=== PATIENT | female | born 1985 | race African-American/Black ===

== ENCOUNTER 2017-04-05 11:37 | Emergency (ER) | payer OTHER ==
[~2017-04-05] VITALS: Ht 162.6 cm; Wt 99.8 kg
[~2017-04-05 11:37] MED LIST: PANT40TA5 PO
[2017-04-05 12:05] VITALS: BP 147/75
[2017-04-05 12:29] LABS: BILIRUBIN,URINE NEGATIVE (NEG); GLUCOSE,URINE NEGATIVE (NEG); NITRITE,URINE NEGATIVE (NEG); PROTEIN,URINE NEGATIVE (NEG-TRACE); UROBILINOGEN,URINE 0.2 mg/dL (0.2 mg/dL)
[2017-04-05] MEDS ORDERED: AZITHROMYCIN 250 MG TABLET. PO ONE ×2 (12:45→14:15)
[2017-04-05] MEDS ORDERED: cefTRIAXone IM 250 MG VIAL IM ONE ×2 (12:45→14:15)
[2017-04-05 12:51] LABS: BACTERIA,URINE FEW /HPF (0-FEW); RBC,URINE 0 /HPF (0-2); SQUAMOUS EPITHELIAL CELL,UR MANY /LPF
--- NOTE | 2017-04-05 13:11 | PHYS DOC ---
Past Medical History Past Medical History: No Pertinent History Additional Past Medical Histor: obesity Past Surgical History: Additional Past Surgical Histo: X4 Alcohol Use: None Drug Use: None Adult General Chief Complaint Chief Complaint: ABDOMINAL PAIN HPI HPI 31-year-old female presenting to the emergency department today with abdominal pain. She reports cramping for about a week. She reports unprotected sex recently about 2 weeks ago. She has mild change in her vaginal fluid is darker but she denies having foul-smelling. She is unsure whether she was exposed to an STD. She currently is bottlefeeding 4-month-old. The pain is mild intermittent nonradiating without alleviating factors. She describes it as a cramping sensation. Review of systems is negative for chest pain shortness of breath fevers chills nausea or vomiting. All other review of systems is negative unless otherwise noted in history of present illness. ED course: 31-year-old female presenting to the emergency department today after having cramping in the pelvis along with a discharge change in her vaginal discharge. Vital signs afebrile normal heart rate. The patient was tested for gonorrhea and chlamydia and attempted to administer Rocephin and azithromycin for presumed infection. The patient declined this treatment and stated she would follow-up with the lab tests. Wet prep obtained as well which was suggestive of bacterial vaginosis for which the patient was discharged home with Flagyl. Urinalysis and test obtained. The patient was then discharged home in stable condition to follow up with their primary care physician over the next 2-3 days. They were to return if their symptoms worsened or if they were concerned for any reason. [id number] discharge instructions and return precautions were given. Patient's questions were answered to their satisfaction. Patient is comfortable plan. Review of Systems Review of Systems SEE ABOVE. Current Medications Current Medications Current Medications Medications (Trade) Dose Ordered Sig/Peter Start Time Stop Time Status Last Admin Dose Admin Azithromycin (Zithromax) 1,000 mg 1X ONCE 04/05/17 12:45 04/05/17 12:48 DC Ceftriaxone Sodium (Rocephin Im) 250 mg 1X ONCE 04/05/17 12:45 04/05/17 12:48 DC Allergies Allergies Allergies Coded Allergies Type Severity Reaction Last Updated Verified No Known Drug Allergies 10/08/13 No Physical Exam Physical Exam SEE ABOVE Constitutional: Well developed, well nourished, no acute distress, non-toxic appearance. [] HENT: Normocephalic, atraumatic, bilateral external ears normal, oropharynx moist, no oral exudates, nose normal. [] Eyes: PERRLA, EOMI, conjunctiva normal, no discharge. [] Neck: Normal range of motion, no tenderness, supple, no stridor. [] Cardiovascular:Heart rate regular rhythm, no murmur [] Lungs & Thorax: Bilateral breath sounds clear to auscultation [] Abdomen: Soft nontender abdomen without rebound tenderness or guarding present. Negative McBurneys point. Negative Bowman sign. No ecchymosis present. Skin: Warm, dry, no erythema, no rash. [] Back: No tenderness, no CVA tenderness. [] Extremities: No tenderness, no cyanosis, no clubbing, ROM intact, no edema. [] Neurologic: Alert and oriented X 3, normal motor function, normal sensory function, no focal deficits noted. [] Psychologic: Affect normal, judgement normal, mood normal. [] Current Patient Data Vital Signs Vital Signs Date Time Temp Pulse Resp B/P (MAP) Pulse Ox O2 Delivery O2 Flow Rate FiO2 04/05/17 12:05 98.4 81 18 147/75 (99) 97 Room Air 98.4 Lab Values Laboratory Tests Test 04/05/17 11:18 04/05/17 12:03 POC Urine HCG, Qualitative Hcg negative (Negative) Urine Collection Type Void Urine Color Yellow Urine Clarity Clear Urine pH 7.0 Urine Specific Gilmer 1.015 Urine Protein Negative mg/dL (NEG-TRACE) Urine Glucose (UA) Negative mg/dL (NEG) Urine Ketones (Stick) Negative mg/dL (NEG) Urine Blood Negative (NEG) Urine Nitrite Negative (NEG) Urine Bilirubin Negative (NEG) Urine Urobilinogen Dipstick 0.2 mg/dL (0.2 mg/dL) Urine Leukocyte Esterase Trace (NEG) Urine RBC 0 /HPF (0-2) Urine WBC 1-4 /HPF (0-4) Urine Squamous Epithelial Cells Many /LPF Urine Bacteria Few /HPF (0-FEW) Microbiology 04/05/17 Wet Prep - Final, Complete EKG EKG [] Radiology/Procedures Radiology/Procedures [] Course & Med Decision Making Course & Med Decision Making Pertinent Labs and Imaging studies reviewed. (See chart for details) [] Dragon Disclaimer Dragon Disclaimer This electronic medical record was generated, in whole or in part, using a voice recognition dictation system. Departure Departure Impression: Primary Impression: Abnormal vaginal fluids Disposition: HOME, SELF-CARE Condition: STABLE Referrals: NO PCP (PCP) BLAINE ENCARNACION MD Patient Instructions: Abdominal Pain (Nonspecific) Additional Instructions: Thank you for allowing us to participate in your care today. Followup with your primary care physician in 3 days if your symptoms do not improve. Call your Primary Doctor tomorrow and inform them of your visit today. If you do not have a primary care provider you can ask for a list of our primary care providers. Return to the emergency department you have any new or concerning findings. This should be evaluated by the primary care physician and any necessary consulting services for continued management within a few days after discharge. Return to emergency room if you have any new or concerning symptoms including but not limited to fever, chills, nausea, vomiting, intractable pain, any new rashes, chest pain, shortness of air, uncontrolled bleeding, difficulty breathing, and/or vision loss. Scripts Metronidazole (FLAGYL) 500 Mg Tablet 1 TAB PO BID, #14 TAB Prov: DIANELYS FOLEY MD 04/05/17 DIANELYS FOLEY MD Apr 05, 2017 13:11
[2017-04-05] MEDS ORDERED: METR500T PO (13:52)
== END 2017-04-05 14:28 | disposition home or self-care (01) ==
LOC: ER 11:37
DX: R87.89 Other abnormal findings in specimens from female genital organs (principal); R10.9 Unspecified abdominal pain; E66.9 Obesity, unspecified; Z68.37 Body mass index [BMI] 37.0-37.9, adult
CPT/HCPCS: 81001; 81025; 87086; 96372; 99284; J0696; Q0111; Q0144

== ENCOUNTER 2017-12-19 16:25 | Emergency (ER) | payer OTHER ==
[2017-12-19 17:24] LABS: URINE HCG POC HCG NEGATIVE (Negative)
[2017-12-19 18:16] LABS: BILIRUBIN,URINE NEGATIVE (NEG); CLARITY,URINE CLEAR; COLOR,URINE YELLOW; GLUCOSE,URINE NEGATIVE (NEG); NITRITE,URINE NEGATIVE (NEG); PROTEIN,URINE NEGATIVE (NEG-TRACE); UROBILINOGEN,URINE 0.2 mg/dL (0.2 mg/dL)
[2017-12-19 18:22] LABS: BACTERIA,URINE 0 /HPF (0-FEW); RBC,URINE OCC /HPF (0-2); SQUAMOUS EPITHELIAL CELL,UR OCC /LPF
[2017-12-19] MEDS: metroNIDAZOLE 500 MG TABLET PO (20:45)
[2017-12-19] MEDS: AZITHROMYCIN 250 MG TABLET. PO (20:46)
[2017-12-23 15:27] LABS: CHLAMYDIA PROBE Negative (Negative); GC PROBE Negative (Negative)
== END 2017-12-19 21:04 | disposition home or self-care (01) ==
LOC: ER 16:25
DX: A59.9 Trichomoniasis, unspecified (principal); N76.0 Acute vaginitis; B96.89 Other specified bacterial agents as the cause of diseases classified elsewhere
CPT/HCPCS: 36415; 81001; 81025; 85014; 85018; 87491; 87591; 96361; 96374; 96375; 96376; 99284-25; Q0111; Q0144

== ENCOUNTER 2018-01-04 11:44 | Emergency (ER) | payer OTHER ==
[2018-01-04 12:25] LABS: ADD MAN DIFF? NO
[2018-01-04 12:27] LABS: BASO # 0.1 x10^3/uL (0.0-0.2); BASO % 1 % (0-3); EOS # 0.1 x10^3/uL (0.0-0.7); EOS % 2 % (0-3); HEMATOCRIT 35.7 % (36.0-47.0); LYMPH # 1.1 x10^3/uL (1.0-4.8); LYMPH % 25 % (24-48); MEAN CORPUSCULAR HEMOGLOBIN 29 pg (25-35); MEAN CORPUSCULAR HGB CONC 34 g/dL (31-37); MEAN CORPUSCULAR VOLUME 86 fL (79-100); MONO # 0.4 x10^3/uL (0.0-1.1); MONO % 8 % (0-9); NEUT # 2.9 x10^3uL (1.8-7.7); NEUT % 64 % (31-73); PLATELET COUNT 259 x10^3/uL (140-400); RED BLOOD COUNT 4.13 x10^6/uL (3.50-5.40); RED CELL DISTRIBUTION WIDTH 14.9 % (11.5-14.5); WHITE BLOOD COUNT 4.5 x10^3/uL (4.0-11.0)
[2018-01-04 12:34] LABS: ANION GAP 6 (6-14); BLOOD UREA NITROGEN 11 mg/dL (7-20); BUN/CREATININE RATIO 14 (6-20); CALCIUM 8.9 mg/dL (8.5-10.1); CARBON DIOXIDE 29 mmol/L (21-32); CHLORIDE 103 mmol/L (98-107); CREATININE 0.8 mg/dL (0.6-1.0); GFR 101.2; GLUCOSE 97 mg/dL (70-99); POTASSIUM 4.1 mmol/L (3.5-5.1); SODIUM 138 mmol/L (136-145)
[2018-01-04 12:40] LABS: ALBUMIN 3.3 g/dL (3.4-5.0); ALK PHOS 76 U/L (46-116); ALT (SGPT) 20 U/L (14-59); AST (SGOT) 24 U/L (15-37); TOTAL BILIRUBIN 0.4 mg/dL (0.2-1.0); TOTAL PROTEIN 6.7 g/dL (6.4-8.2)
[2018-01-04 12:43] LABS: TROPONINI < 0.017 ng/mL (0.000-0.055)
== END 2018-01-04 13:11 | disposition home or self-care (01) ==
LOC: ER 11:44
DX: R07.89 Other chest pain (principal); G89.29 Other chronic pain; G40.909 Epilepsy, unspecified, not intractable, without status epilepticus; F17.200 Nicotine dependence, unspecified, uncomplicated
CPT/HCPCS: 36415; 71045; 80053; 84484; 85025; 93005; 99285-25

== ENCOUNTER 2020-12-27 00:16 | Emergency (ER) | payer SELFPAY ==
[~2020-12-27] VITALS: Ht 162.6 cm; Wt 127.0 kg
[~2020-12-27 00:16] MED LIST changes: +METR-34 PO; +METR500T PO; -PANT40TA5 PO; +PANT40TA77 PO
--- NOTE | 2020-12-27 00:43 | PHYS DOC ---
Past Medical History Past Medical History: Seizure, Other Additional Past Medical Histor: obesity,EPILEPSY,CHRONIC BACK PAIN Past Surgical History: Additional Past Surgical Histo: X4 Smoking Status: Current Some Day Smoker Alcohol Use: Occasionally Drug Use: None General Adult EDM: Chief Complaint: MECHANICAL FALL HPI: HPI: Patient is a 35 year old female presented to the ER today for evaluation right knee pain. Patient was playing with her kids on the sidewalk, tried to see if she can jump further than them, she fell onto her right knee on concrete. She denied any other injury. She was able to walk but having worse pain now. She denied any ankle pain, no back pain, hip pain. Review of Systems: Review of Systems: Constitutional: Denies fever or chills. [] Eyes: Denies change in visual acuity. [] HENT: Denies nasal congestion or sore throat. [] Respiratory: Denies cough or shortness of breath. [] Cardiovascular: Denies chest pain or edema. [] GI: Denies abdominal pain, nausea, vomiting, bloody stools or diarrhea. [] : Denies dysuria. [] Musculoskeletal: Positive for right knee pain. Integument: Denies rash. [] Neurologic: Denies headache, focal weakness or sensory changes. [] Endocrine: Denies polyuria or polydipsia. [] Lymphatic: Denies swollen glands. [] Psychiatric: Denies depression or anxiety. [] Heart Score: C/O Chest Pain: N/A Risk Factors: Risk Factors: DM, Current or recent (<one month) smoker, HTN, HLP, family history of CAD, obesity. Risk Scores: Score 0 - 3: 2.5% MACE over next 6 weeks - Discharge Home Score 4 - 6: 20.3% MACE over next 6 weeks - Admit for Clinical Observation Score 7 - 10: 72.7% MACE over next 6 weeks - Early Invasive Strategies Allergies: Allergies: Allergies Coded Allergies Type Severity Reaction Last Updated Verified No Known Drug Allergies 10/08/13 No Physical Exam: PE: Constitutional: Well developed, well nourished, no acute distress, non-toxic appearance. [] HENT: Normocephalic, atraumatic, bilateral external ears normal, oropharynx moist, no oral exudates, nose normal. [] Eyes: PERRLA, EOMI, conjunctiva normal, no discharge. [] Neck: Normal range of motion, no tenderness, supple, no stridor. [] Cardiovascular:Heart rate regular rhythm, no murmur [] Lungs & Thorax: Bilateral breath sounds clear to auscultation [] Abdomen: Bowel sounds normal, soft, no tenderness, no masses, no pulsatile masses. [] Skin: Warm, dry, no erythema, no rash. [] Back: No tenderness, no CVA tenderness. [] Extremities: Right knee is tender to palpation anterior, no deformity, no swelling. Right knee joint is stable. ] Neurologic: Alert and oriented X 3, normal motor function, normal sensory function, no focal deficits noted. [] Psychologic: Affect normal, judgement normal, mood normal. [] EKG: EKG: [] Radiology/Procedures: Radiology/Procedures: [place] [address] IMAGING REPORT Signed PATIENT: ISAC JUAREZ ACCOUNT: [id number] : 1985 LOCATION: ER AGE: 35 SEX: F EXAM STATUS: REG ER ORD. PHYSICIAN: RADHA HUYNH DO REASON: fell, right knee pain PROCEDURE: KNEE RIGHT 3V INDICATION: Reason: fell, right knee pain / Spl. Instructions: / History: COMPARISON: None. IMPRESSION: Right knee: 3 views obtained. Joint effusion is seen. Mild indentation of the lateral tibial plateau and medial femoral condyle. Fracture not excluded given this finding. Please see subsequently obtained CT for more complete characterization. Electronically signed by: Hever Chavez MD (12/27/2020 3:10 AM) [id number] DICTATED and SIGNED BY: HEVER CHAVEZ MD DATE: 12/27/20 [id number] [][place] [id number] IMAGING REPORT Signed PATIENT: ISAC JUAREZ ACCOUNT: [id number] : 1985 LOCATION: ER AGE: 35 SEX: F EXAM STATUS: REG ER ORD. PHYSICIAN: RADHA HUYNH DO REASON: right knee injury, suspected TIBIAL PLATEAU FRACTURE PROCEDURE: CT LOWER EXTREMITY WO RIGHT INDICATION: Reason: right knee injury, suspected TIBIAL PLATEAU FRACTURE / Spl. Instructions: / History: . COMPARISON: Plain film from earlier same day TECHNIQUE: Axial CT images obtained through the right knee. One or more of the following individualized dose reduction techniques were u tilized for this examination: 1. Automated exposure control; 2. Adjustment of the mA and/or kV according to patient size; 3. Use of iterative reconstruction technique. FINDINGS: There is mild indentation at the anterior aspect of the lateral tibial plateau. Joint effusion is identified with some high density within which could be from lipohemarthrosis. Edema at Hoffa's fat pad. No evidence of dislocation. There is some edema of the soft tissues. Mild indentation of the anterior aspect of the medial femoral condyle. IMPRESSION: * Indentation at the lateral tibial plateau which could be secondary to a fracture. There is also mild indentation of the medial femoral condyle anteriorly. If the patient has pain at this site this could be secondary to an additional impaction injury. * Lipohemarthrosis and edema within Hoffa's fat pad which could be related to the patient's injury. Electronically signed by: Hever Chavez MD (12/27/2020 3:09 AM) [id number] DICTATED and SIGNED BY: HEVER CHAVEZ MD DATE: 12/27/20 [id number] Course & Med Decision Making: Course & Med Decision Making Pertinent Labs and Imaging studies reviewed. (See chart for details) Patient is a 35-year-old female who fell, x-ray CT scan showed suspicious for lateral tibial plateau fracture, discussed with orthopedic surgeon on-call Dr. Vargas who recommended to place patient in a right knee immobilizer, discharged home with crutches, nonweightbearing, follow-up with him in the clinic this week. Discussed with patient about the recommendation and findings, she is amenable to plan of care. Knee immobilizer was placed on right knee by RN, patient was given crutches. [place] Disclaimer: Dragtessa Disclaimer: This electronic medical record was generated, in whole or in part, using a voice recognition dictation system. Departure Departure Impression: Primary Impression: Tibial plateau fracture, right Disposition: 01 HOME / SELF CARE / HOMELESS Condition: IMPROVED Referrals: NO PCP (PCP) JUAN VARGAS MD Please call this orthopedic surgeon for follow up this week. Patient Instructions: Crutch Use, [id number], Tibial Plateau Fracture with [facility] Additional Instructions: Thank you for visiting our Emergency Department. We appreciate you trusting us with your care. If any additional problems come up don't hesitate to return to visit us. Please follow up with your primary care provider so they can plan additional care if needed and know about the problem that you had. If symptoms worsen come back to the Emergency Department. Any concerning symptoms that start such as chest pain, shortness of air, weakness or numbness on one side of the body, running high fevers or any other concerning symptoms return to the ER. Scripts Hydrocodone/Acetaminophen (Hydrocodone-Acetamin 5-325 mg) 1 Each Tablet 1 EACH PO Q6HRS PRN for PAIN, #20 TAB Prov: RADHA HUYNH DO 12/27/20 RADHA HUYNH DO December 27, 2020 00:43
[2020-12-27] MEDS ORDERED: IBUPROFEN 400 MG TABLET. PO ONE (01:00)
[2020-12-27] MEDS ORDERED: HYDROcodone/APAP 5/325MG 1 TAB TABLET PO ONE (01:00)
--- NOTE | 2020-12-27 03:11 | RAD ---
INDICATION: Reason: right knee injury, suspected TIBIAL PLATEAU FRACTURE / Spl. Instructions: / Hist ory: . COMPARISON: Plain film from earlier same day TECHNIQUE: Axial CT images obtained through the right knee. One or more of the following individualized dose reduction techniques were utilized for this examinat ion: 1. Automated exposure control; 2. Adjustment of the mA and/or kV according to patient size; 3 . Use of iterative reconstruction technique. FINDINGS: There is mild indentation at the anterior aspect of the lateral tibial plateau. Joint effusion is identified with some high density within which could be from lipohemarthrosis. Edema at Hoffa's fat pad. No evidence of dislocation. There is some edema of the soft tissues. Mild indentation of the anterior aspect of the medial femoral condyle. IMPRESSION: * Indentation at the lateral tibial plateau which could be secondary to a fracture. There is also mi ld indentation of the medial femoral condyle anteriorly. If the patient has pain at this site this co uld be secondary to an additional impaction injury. * Lipohemarthrosis and edema within Hoffa's fat pad which could be related to the patient's injury. Electronically signed by: Onur Portillo MD (12/27/2020 3:09 AM) [id number]
--- NOTE | 2020-12-27 03:12 | RAD ---
INDICATION: Reason: fell, right knee pain / Spl. Instructions: / History: COMPARISON: None. IMPRESSION: Right knee: 3 views obtained. Joint effusion is seen. Mild indentation of the lateral tibial plateau and medial femoral condyle. Fracture not excluded given this finding. Please see subsequently obtaine d CT for more complete characterization. Electronically signed by: Onur Portillo MD (12/27/2020 3:10 AM) [id number]
[2020-12-27] MEDS ORDERED: HYDR-2759 PO (04:26)
[2020-12-27 04:30] VITALS: BP 108/53
== END 2020-12-27 04:57 | disposition home or self-care (01) ==
LOC: ER 00:16
DX: S82.141A Displaced bicondylar fracture of right tibia, initial encounter for closed fracture (principal); G89.29 Other chronic pain; F17.200 Nicotine dependence, unspecified, uncomplicated; G40.909 Epilepsy, unspecified, not intractable, without status epilepticus; W10.1XXA Fall (on)(from) sidewalk curb, initial encounter; Y93.89 Activity, other specified; Y92.89 Other specified places as the place of occurrence of the external cause; Y99.8 Other external cause status
CPT/HCPCS: 29505; 73562; 73700; 99285-25

== ENCOUNTER 2021-01-07 14:36 | Emergency (ER) | payer SELFPAY ==
[~2021-01-07] VITALS: Ht 165.1 cm; Wt 131.8 kg
[~2021-01-07 14:36] MED LIST changes: +HYDR-2759 PO
[2021-01-07] MEDS ORDERED: IV NORMAL SALINE 1000ML BAG 1,000 ML IV ONE (15:00)
[2021-01-07] MEDS ORDERED: ASPIRIN 325 MG TABLET PO ONE (15:00)
[2021-01-07] MEDS ORDERED: diazePAM 2 MG TABLET PO ONE (15:00)
[2021-01-07 15:35] LABS: BASO # 0.1 x10^3/uL (0.0-0.2); BASO % 2 % (0-3); EOS # 0.1 x10^3/uL (0.0-0.7); EOS % 1 % (0-3); HEMATOCRIT 39.2 % (36.0-47.0); HEMOGLOBIN 12.9 g/dL (12.0-15.5); LYMPH # 1.4 x10^3/uL (1.0-4.8); LYMPH % 19 % (24-48); MEAN CORPUSCULAR HEMOGLOBIN 28 pg (25-35); MEAN CORPUSCULAR HGB CONC 33 g/dL (31-37); MEAN CORPUSCULAR VOLUME 83 fL (79-100); MONO # 0.7 x10^3/uL (0.0-1.1); MONO % 9 % (0-9); NEUT # 5.3 x10^3/uL (1.8-7.7); NEUT % 70 % (31-73); PLATELET COUNT 270 x10^3/uL (140-400); WHITE BLOOD COUNT 7.6 x10^3/uL (4.0-11.0)
[2021-01-07] MEDS ORDERED: IOHEXOL 350 MG/ML 100 ML VIAL. IV ONE (15:45)
[2021-01-07 15:54] LABS: BILIRUBIN,URINE NEGATIVE (NEG); CLARITY,URINE CLEAR; COLOR,URINE YELLOW; NITRITE,URINE NEGATIVE (NEG); PROTEIN,URINE NEGATIVE (NEG-TRACE); UROBILINOGEN,URINE 0.2 mg/dL (0.2 mg/dL)
--- NOTE | 2021-01-07 16:00 | PHYS DOC ---
Past Medical History Past Medical History: Anxiety, Seizure, Other Additional Past Medical Histor: obesity,EPILEPSY,CHRONIC BACK PAIN (BLAINE VILLALTA DO) Past Surgical History: Additional Past Surgical Histo: X4 (BLAINE VILLALTA DO) Smoking Status: Current Some Day Smoker Alcohol Use: Occasionally Drug Use: None (BLAINE VILLALTA DO) General Adult EDM: Chief Complaint: CHEST PAIN HPI: HPI: 35-year-old female presents with report of left-sided chest tightness with bilateral shoulder tightness and bilateral tingling in her hands which was worse today upon waking. Patient reports she has had similar episodes frequently over the last several months. Patient does report some increased life stressors. Denies any nausea or vomiting. Denies dizziness. Denies shortness of air. Denies fever or chills. Denies trauma. Patient does report recent right tibial plateau fracture which was diagnosed here at [facility] in the emergency department based on CT imaging. [facility] review noted patient seen on 12/27/2020 and that patient should be in a knee immobilizer. Patient reports she took the knee immobilizer off after the limb started to feel better. Denies leg swelling or calf tenderness. Patient with cardiac risk factors of hypertension. Denies history or family history of PE/DVT. (BLAINE VILLALTA DO) Review of Systems: Review of Systems: Constitutional: Denies fever or chills Eyes: Denies redness or eye pain HENT: Denies nasal congestion or sore throat Respiratory: Denies cough or shortness of breath Cardiovascular: Reports chest pain and palpitations GI: Denies abdominal pain, nausea, or vomiting : Denies dysuria or hematuria Musculoskeletal: Denies back pain or joint pain; reports bilateral shoulder tightness Integument: Denies rash or skin lesions Neurologic: Denies headache, focal weakness or sensory changes; reports bilateral hand tingling Complete systems were reviewed and found to be within normal limits, except as documented in this note. (BLAINE VILLALTA DO) Heart Score: C/O Chest Pain: Yes HEART Score for Chest Pain: HEART Score for Chest Pain Response (Comments) Value History Slighlty/Non-Suspicious 0 ECG Normal 0 Age < 45 0 Risk Factors 1 or 2 Risk Factors 1 Total 1 Risk Factors: Risk Factors: DM, Current or recent (<one month) smoker, HTN, HLP, family history of CAD, obesity. Risk Scores: Score 0 - 3: 2.5% MACE over next 6 weeks - Discharge Home Score 4 - 6: 20.3% MACE over next 6 weeks - Admit for Clinical Observation Score 7 - 10: 72.7% MACE over next 6 weeks - Early Invasive Strategies (BLAINE VILLALTA DO) C/O Chest Pain: Yes HEART Score for Chest Pain: HEART Score for Chest Pain Response (Comments) Value History Slighlty/Non-Suspicious 0 ECG Normal 0 Age < 45 0 Risk Factors No Risk Factors 0 Troponin < Normal Limit 0 Total 0 (CAMILA GUILLEN DO) Current Medications: Current Medications Medications (Trade) Dose Ordered Sig/Peter Start Time Stop Time Status Last Admin Dose Admin Aspirin (Mendy Aspirin) 325 mg 1X ONCE 01/07/21 15:00 01/07/21 15:03 DC 01/07/21 15:22 325 MG Diazepam (Valium) 2 mg 1X ONCE 01/07/21 15:00 01/07/21 15:03 DC 01/07/21 15:22 2 MG Iohexol (Omnipaque 350 Mg/ml) 100 ml 1X ONCE 01/07/21 15:45 01/07/21 15:46 DC Sodium Chloride 1,000 ml @ 1,000 mls/hr 1X ONCE 01/07/21 15:00 01/07/21 15:59 01/07/21 15:22 1,000 MLS/HR (BLAINE VILLALTA DO) Allergies: Allergies: Allergies Coded Allergies Type Severity Reaction Last Updated Verified morphine Allergy Intermediate ITCHING 12/27/20 Yes (BLAINE VILLALTA DO) Physical Exam: PE: Constitutional: Well developed, obese, anxious, non-toxic appearance HENT: Normocephalic, atraumatic Eyes: Conjunctiva normal, no discharge Neck: Normal range of motion, supple Lungs & Thorax: No respiratory distress, equal chest rise and fall Abdomen: Soft, no tenderness Skin: Warm, dry, no erythema, no rash Extremities: Bilateral upper shoulder muscular tenderness on palpation, all extremities neurovascularly intact, ROM intact, no edema Neurologic: Alert and oriented X 3, no focal deficits noted Psychologic: Affect anxious, judgment normal (BLAINE VILLALTA DO) Current Patient Data: Labs: Laboratory Tests Test 01/07/21 15:15 White Blood Count 7.6 x10^3/uL (4.0-11.0) Red Blood Count 4.70 x10^6/uL (3.50-5.40) Hemoglobin 12.9 g/dL (12.0-15.5) Hematocrit 39.2 % (36.0-47.0) Mean Corpuscular Volume 83 fL (79-100) Mean Corpuscular Hemoglobin 28 pg (25-35) Mean Corpuscular Hemoglobin Concent 33 g/dL (31-37) Red Cell Distribution Width 16.0 % (11.5-14.5) H Platelet Count 270 x10^3/uL (140-400) Neutrophils (%) (Auto) 70 % (31-73) Lymphocytes (%) (Auto) 19 % (24-48) L Monocytes (%) (Auto) 9 % (0-9) Eosinophils (%) (Auto) 1 % (0-3) Basophils (%) (Auto) 2 % (0-3) Neutrophils # (Auto) 5.3 x10^3/uL (1.8-7.7) Lymphocytes # (Auto) 1.4 x10^3/uL (1.0-4.8) Monocytes # (Auto) 0.7 x10^3/uL (0.0-1.1) Eosinophils # (Auto) 0.1 x10^3/uL (0.0-0.7) Basophils # (Auto) 0.1 x10^3/uL (0.0-0.2) Laboratory Tests 01/07/21 15:15 Vital Signs: Vital Signs Date Time Temp Pulse Resp B/P (MAP) Pulse Ox O2 Delivery O2 Flow Rate FiO2 01/07/21 14:59 97.0 83 20 141/77 (98) 99 Room Air 97.0 (BLAINE VILLALTA DO) EKG: EKG: @1442 NSR at 78bpm, NO ST elevation, QRS 84ms, QT/QTc 386/444ms, t wave inversion in III and aVF (BLAINE VILLALTA DO) Radiology/Procedures: Radiology/Procedures: [] (BLAINE VILLALTA DO) Impression: There is no evidence for acute or chronic pulmonary embolism. Borderline axillary lymph nodes favor reactive changes. Mild hepatic steatosis. (CAMILA GUILLEN DO) Course & Med Decision Making: Course & Med Decision Making Pertinent Labs and Imaging studies reviewed. (See chart for details) Patient presents with atypical chest pain. Patient appears very anxious. Patient also with bilateral shoulder tightness which appears muscular in nature. Patient with recent diagnosis of right tibial plateau fracture based on CT imaging from 12/27/2020. Given this history cannot fully exclude PE. EKG stable. Labs obtained and posted to chart. CMP, urine preg, and UA pending. 2 mg Valium p.o. provided with interval improvement. CTA chest pending. 1600- Signout given to Dr. Guillen for further evaluation and final disposition. Discussed current findings and plan with patient, who acknowledges understanding and agreement. (BLAINE VILLALTA DO) Course & Med Decision Making Assumed care at shift change disposition pending CT imaging. CT imaging reviewed no acute PE. Patient evaluated all results reviewed with the patient. Patient wrongly advised to used her splint for lower extremity injury. Patient advised to follow-up with orthopedics. (CAMILA GUILLEN DO) Dragon Disclaimer: [place] Disclaimer: This electronic medical record was generated, in whole or in part, using a voice recognition dictation system. (BLAINE VILLALTA DO) Departure Departure Impression: Primary Impression: Chest pain Qualified Codes: R07.9 - Chest pain, unspecified Additional Impression: Anxiety Disposition: HOME / SELF CARE / HOMELESS Condition: STABLE Referrals: NO PCP (PCP) Patient Instructions: Anxiety and Panic Attacks, Chest Pain (Nonspecific) BLAINE VILLALTA DO January 07, 2021 16:00 CAMILA GUILLEN DO January 07, 2021 17:44
[2021-01-07 16:04] LABS: BACTERIA,URINE FEW /HPF (0-FEW); RBC,URINE 0 /HPF (0-2); WBC,URINE 0 /HPF (0-4)
[2021-01-07 16:08] LABS: U PREG PATIENT NEGATIVE (NEG)
[2021-01-07 16:12] LABS: CALCIUM 8.5 mg/dL (8.5-10.1); CREATININE 0.7 mg/dL (0.6-1.0); GFR 115.9; POTASSIUM 4.2 mmol/L (3.5-5.1)
[2021-01-07 16:19] LABS: ALBUMIN 3.4 g/dL (3.4-5.0); ALBUMIN/GLOBULIN RATIO 0.8 (1.0-1.7); MAGNESIUM 1.9 mg/dL (1.8-2.4); TOTAL BILIRUBIN 0.2 mg/dL (0.2-1.0); TOTAL PROTEIN 7.8 g/dL (6.4-8.2)
--- NOTE | 2021-01-07 16:33 | EKG ---
[facility] [address] [place] [address] Test Date: 2021-01-07 Test Time: 14:42:48 Pat Name: ISAC JUAREZ Department: Room: Gender: F [employer]: : 1985 Requested By: BLAINE VILLALTA Order Number: [id number] Reading MD: Measurements Intervals [place] Rate: 78 P: 35 RI: 164 QRS: 1 QRSD: 84 T: -10 QT: 386 QTc: 444 Interpretive Statements SINUS RHYTHM T ABNORMALITY IN INFERIOR LEADS ABNORMAL ECG RI6.02 No previous ECG available for comparison
[2021-01-07 17:25] VITALS: BP 130/85
--- NOTE | 2021-01-07 17:37 | RAD ---
PQRS Compliance Statement: One or more of the following individualized dose reduction techniques were utilized for this examinat ion: 1. Automated exposure control 2. Adjustment of the mA and/or kV according to patient size 3. Use of iterative reconstruction technique CT angiography chest with contrast 01/07/2021 4:43 PM INDICATION: Chest pain, history of recent tibial plateau fracture COMPARISON: CT chest 01/30/2015 TECHNIQUE: Axial CT images of the chest were obtained after the intravenous administration of nonioni c contrast. Coronal and sagittal reformats are provided. Maximum intensity projection images of the t horacic vasculature are provided. FINDINGS: The thyroid gland is normal in appearance. There are no pathologically enlarged axillary, mediastinal or hilar lymph nodes. Borderline axillary lymph nodes are identified with normal fatty sujit. The hea rt size is within normal limits. No significant pericardial effusion. Thoracic aorta is normal in cou rse and caliber. There is adequate opacification of the pulmonary arterial system. There there are no filling defects within the pulmonary arterial system to suggest acute or chronic pulmonary embolus. There are no suspicious solid noncalcified pulmonary nodules. There are no pulmonary infiltrates. The re are no pleural effusions. No pulmonary vascular congestion or pneumothorax. Mild hypoattenuation the hepatic parenchyma may reflect hepatic steatosis.. No suspicious osseous les ions are visualized. IMPRESSION: There is no evidence for acute or chronic pulmonary embolism. Borderline axillary lymph nodes favor reactive changes. Mild hepatic steatosis. Electronically signed by: Odette Staley MD (01/07/2021 5:34 PM) [facility] [place]
[2021-01-07] MEDS ORDERED: ALPR0.5T PO (18:03)
== END 2021-01-07 18:11 | disposition home or self-care (01) ==
LOC: ER 14:36
DX: R07.89 Other chest pain (principal); F41.9 Anxiety disorder, unspecified; M25.511 Pain in right shoulder; M25.512 Pain in left shoulder; G89.29 Other chronic pain; R20.2 Paresthesia of skin; G40.909 Epilepsy, unspecified, not intractable, without status epilepticus; F17.200 Nicotine dependence, unspecified, uncomplicated; Z88.5 Allergy status to narcotic agent
CPT/HCPCS: 36415; 71275; 80053; 81001; 81025; 83690; 83735; 83880; 84484; 85025; 93005; 96360; 99285; J7030; Q9967

== ENCOUNTER 2021-01-29 16:44 | Emergency (ER) | payer SELFPAY ==
[~2021-01-29] VITALS: Ht 162.6 cm; Wt 110.0 kg
[~2021-01-29 16:44] MED LIST changes: +ALPR0.5T PO
[2021-01-29] MEDS ORDERED: LIDO:MAALOX 1:1 20 ML SINGLE DOSE. SWSW ONE (17:30)
--- NOTE | 2021-01-29 18:11 | EKG ---
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
[2021-01-29 18:27] LABS: BILIRUBIN,URINE NEGATIVE (NEG); CLARITY,URINE CLEAR; COLOR,URINE YELLOW; NITRITE,URINE NEGATIVE (NEG); PROTEIN,URINE NEGATIVE (NEG-TRACE); UROBILINOGEN,URINE 0.2 mg/dL (0.2 mg/dL)
[2021-01-29 18:31] VITALS: BP 141/89
[2021-01-29 18:41] LABS: BACTERIA,URINE FEW /HPF (0-FEW); RBC,URINE OCC /HPF (0-2); WBC,URINE 0 /HPF (0-4)
--- NOTE | 2021-01-29 18:54 | RAD ---
Exam Date: 01/29/2021 6:37 PM XR ABDOMEN COMP ACUTE Indication: Reason: chest pain epigastric pain / Spl. Instructions: / History: FINDINGS/ IMPRESSION: CHEST: The cardiac silhouette, pulmonary vasculature and lung mariano are within normal limits. The osseous structures are intact. ABDOMEN AND PELVIS: There is a non-dilated, non-obstructed bowel gas pattern. Air and fecal matter is seen within the co flores. Degenerative changes seen in the spine and pelvis. Electronically signed by: Jun Valadez MD (01/29/2021 6:52 PM) SIMONE
[2021-01-29] MEDS ORDERED: BISACODYL 5 MG TABLET.DR. PO STA (19:08)
[2021-01-29] MEDS ORDERED: MAGNESIUM CITRATE 296 ML SOLUTION. PO ONE (19:15)
[2021-01-29] MEDS ORDERED: POLY119P4 PO (19:19)
[2021-01-29] MEDS ORDERED: MAGN296S68 PO (19:19)
--- NOTE | 2021-01-29 19:19 | PHYS DOC ---
Past Medical History Past Medical History: Anxiety, Other Additional Past Medical Histor: iron deficiency (GALO STEVENS SENIOR GIS ANALYST) Past Surgical History: Additional Past Surgical Histo: X4 (GALO STEVENS SENIOR GIS ANALYST) Smoking Status: Current Every Day Smoker Alcohol Use: Occasionally Drug Use: None (GALO STEVENS SENIOR GIS ANALYST) General Adult EDM: Chief Complaint: CHEST PAIN HPI: HPI: Patient is a 35-year-old female patient with history of constipation, anxiety, who presents to the ED today with complaints of mild intermittent epigastric and substernal chest pain, patient states this is a chronic issue for her. She states she has been seen in the emergency room multiple times for this pain. She states they could not find anything acute causing the pain. She states she thinks her anxiety is the source of the pain. Patient describes the pain as a burning sensation in her chest. Denies anything relieving the pain but states her anxiety makes the pain worse. Denies any chance she is . Historian was the patient (GALO STEVENS SENIOR GIS ANALYST) Review of Systems: Review of Systems: Constitutional: Denies fever or chills. [] Eyes: Denies change in visual acuity. [] HENT: Denies nasal congestion or sore throat. [] Respiratory: Denies cough or shortness of breath. [] Cardiovascular: Reports chest pain GI: Reports epigastric pain, denies nausea, vomiting, bloody stools or diarrhea. [] : Denies dysuria. [] Musculoskeletal: Denies back pain or joint pain. [] Integument: Denies rash. [] Neurologic: Denies headache, focal weakness or sensory changes. [] Endocrine: Denies polyuria or polydipsia. [] Lymphatic: Denies swollen glands. [] Psychiatric: Denies depression or anxiety. [] (GALO STEVENS SENIOR GIS ANALYST) Heart Score: C/O Chest Pain: N/A Risk Factors: Risk Factors: DM, Current or recent (<one month) smoker, HTN, HLP, family history of CAD, obesity. Risk Scores: Score 0 - 3: 2.5% MACE over next 6 weeks - Discharge Home Score 4 - 6: 20.3% MACE over next 6 weeks - Admit for Clinical Observation Score 7 - 10: 72.7% MACE over next 6 weeks - Early Invasive Strategies (GALO STEVENS SENIOR GIS ANALYST) Current Medications: Current Medications Medications (Trade) Dose Ordered Sig/Peter Start Time Stop Time Status Last Admin Dose Admin Multi-Ingredient Mouthwash/Gargle (Gi Cocktail) 20 ml 1X ONCE 01/29/21 17:30 01/29/21 17:31 DC 01/29/21 17:59 20 ML (GALO STEVENS SENIOR GIS ANALYST) Allergies: Allergies: Allergies Coded Allergies Type Severity Reaction Last Updated Verified morphine Allergy Intermediate ITCHING 12/27/20 Yes (GALO STEVENS SENIOR GIS ANALYST) Physical Exam: PE: Constitutional: Well developed, well nourished, no acute distress, non-toxic appearance. [] HENT: Normocephalic, atraumatic, bilateral external ears normal, oropharynx moist, no oral exudates, nose normal. [] Eyes: PERRLA, EOMI, conjunctiva normal, no discharge. [] Neck: Normal range of motion, no tenderness, supple, no stridor. [] Cardiovascular:Heart rate regular rhythm, no murmur [] Lungs & Thorax: Bilateral breath sounds clear to auscultation [] Abdomen: Bowel sounds normal, soft, no tenderness, no masses, no pulsatile masses. [] Skin: Warm, dry, no erythema, no rash. [] Back: No tenderness, no CVA tenderness. [] Extremities: No tenderness, no cyanosis, no clubbing, ROM intact, no edema. [] Neurologic: Alert and oriented X 3, normal motor function, normal sensory function, no focal deficits noted. [] Psychologic: Affect normal, judgement normal, mood normal. [] (GALO STEVENS SENIOR GIS ANALYST) Current Patient Data: Labs: Laboratory Tests Test 01/29/21 18:00 01/29/21 18:07 Urine Collection Type Unknown Urine Color Yellow Urine Clarity Clear Urine pH 6.0 (<5.0-8.0) Urine Specific [place] <=1.005 (1.000-1.030) Urine Protein Negative mg/dL (NEG-TRACE) Urine Glucose (UA) Negative mg/dL (NEG) Urine Ketones (Stick) Negative mg/dL (NEG) Urine Blood Negative (NEG) Urine Nitrite Negative (NEG) Urine Bilirubin Negative (NEG) Urine Urobilinogen Dipstick 0.2 mg/dL (0.2 mg/dL) Urine Leukocyte Esterase Negative (NEG) Urine RBC Occ /HPF (0-2) Urine WBC 0 /HPF (0-4) Urine Squamous Epithelial Cells Mod /LPF Urine Bacteria Few /HPF (0-FEW) POC Urine HCG, Qualitative Hcg negative (Negative) Vital Signs: Vital Signs Date Time Temp Pulse Resp B/P (MAP) Pulse Ox O2 Delivery O2 Flow Rate FiO2 01/29/21 18:31 65 18 141/89 (106) 98 Room Air 01/29/21 17:40 98.6 98.6 (GALO STEVENS SENIOR GIS ANALYST) EKG: EK interpreted by Dr. Lamb sinus rhythm heart rate 74 no STEMI [] (GALO STEVENS SENIOR GIS ANALYST) Radiology/Procedures: Radiology/Procedures: PROCEDURE: ACUTE ABDOMEN SERIES Exam Date: 01/29/2021 6:37 PM XR ABDOMEN COMP ACUTE Indication: Reason: chest pain epigastric pain / Spl. Instructions: / History: FINDINGS/ IMPRESSION: CHEST: The cardiac silhouette, pulmonary vasculature and lung mariano are within normal limits. The osseous structures are intact. ABDOMEN AND PELVIS: There is a non-dilated, non-obstructed bowel gas pattern. Air and fecal matter is seen within the colon. Degenerative changes seen in the spine and pelvis. Electronically signed by: Artem Valadez MD (01/29/2021 6:52 PM) [facility] DICTATED and SIGNED BY: ARTEM VALADEZ MD DATE: 01/29/21 1420URI6 0 (GALO STEVENS SENIOR GIS ANALYST) Course & Med Decision Making: Course & Med Decision Making Pertinent Labs and Imaging studies reviewed. (See chart for details) This is a 35-year-old female patient presented to the ED today complaining of substernal chest pain and epigastric chest pain, reports this is a chronic issue and believes is coming from her anxiety. EKG is negative, acute abdominal series noted for constipation. Discussed constipation management and prevention. (GALO STEVENS SENIOR GIS ANALYST) Dragon Disclaimer: Dragon Disclaimer: This electronic medical record was generated, in whole or in part, using a voice recognition dictation system. (GALO STEVENS SENIOR GIS ANALYST) Departure Departure Impression: Primary Impression: Constipation Qualified Codes: K59.00 - Constipation, unspecified Additional Impression: Chest pain Qualified Codes: R07.9 - Chest pain, unspecified Disposition: HOME / SELF CARE / HOMELESS Condition: STABLE Referrals: NO PCP (PCP) Patient Instructions: Constipation, Adult Additional Instructions: Your evaluated in the emergency room and noted to have constipation. Please consider increasing your dietary fiber intake as well as water intake, try and exercise. Take magnesium citrate anytime you are constipated. Take MiraLAX every day to reduce episodes of constipation. Scripts Magnesium Citrate (MAGNESIUM CITRATE) 296 Ml Solution 296 ML PO ONCE, #296 ML Prov: GALO STEVENS APRN 01/29/21 Polyethylene Glycol 3350 (MIRALAX) 119 Gm Powder 17 GM PO DAILY for constipation, #255 GM 0 Refills dissolve in water Prov: GALO STEVENS APRN 01/29/21 Attending Signature Attending Signature I have reviewed the PA/FRUIT TRIMMER's note and plan of care. I was available for consultation as needed during the patient's visit in the emergency department. I agree with the clinical impression, plan, and disposition. (BLAINE VILLALTA DO) GALO STEVENS APRN Jan 29, 2021 19:19 BLAINE VILLALTA DO Jan 30, 2021 00:50
== END 2021-01-29 19:50 | disposition home or self-care (01) ==
LOC: ER 16:44
DX: K59.00 Constipation, unspecified (principal); R07.2 Precordial pain; F17.200 Nicotine dependence, unspecified, uncomplicated; F41.9 Anxiety disorder, unspecified; Z88.5 Allergy status to narcotic agent
CPT/HCPCS: 74022; 81001; 81025; 93005; 99285-25

== ENCOUNTER 2021-02-04 22:02 | Emergency (ER) | payer SELFPAY ==
[~2021-02-04] VITALS: Ht 160 cm; Wt 104.5 kg
[~2021-02-04 22:02] MED LIST changes: +MAGN296S68 PO; +POLY119P4 PO
[2021-02-04] MEDS ORDERED: LIDO:MAALOX 1:1 20 ML SINGLE DOSE. SWSW ONE (23:45)
--- NOTE | 2021-02-05 00:05 | EKG ---
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
[2021-02-05 00:20] VITALS: BP 144/86
[2021-02-05] MEDS ORDERED: FAMO-63 PO (00:33)
--- NOTE | 2021-02-05 00:34 | PHYS DOC ---
Past Medical History Past Medical History: Anxiety, Seizure Additional Past Medical Histor: iron deficiency Past Surgical History: Additional Past Surgical Histo: X4 Smoking Status: Current Every Day Smoker Alcohol Use: Occasionally Drug Use: None General Adult EDM: Chief Complaint: HEARTBURN/GI DISTRESS HPI: HPI: 35-year-old AA female presents to the ED with daughter, (patient consents to his/her/their knowledge and involvement in pts' medical care), complaints of seizure disorder, iron deficiency anemia, and anxiety, well-known to this ED (5 visits in the past 6 weeks), presents to the ED with multiple complaints, primary complaint of epigastric abdominal pain, nonradiating, described as burning in nature that has been intermittent for the past month. Patient states she was recently seen in the ED for these symptoms. Has not followed up and has no routine primary care physician. Reports she does not like that "numbing" medication we give her. Is also requesting a medication for anxiety. EMR was reviewed and patient was seen 7 days ago in the ED for chest pain, epigastric abdominal pain. Imaging studies performed. Told provider the symptoms were chronic. Was diagnosed with constipation and treated with magnesium citrate and GoLYTELY. Review of Systems: Review of Systems: Constitutional: Denies fever or chills. [] Eyes: Denies change in visual acuity. [] HENT: Denies nasal congestion or sore throat. [] Respiratory: Denies cough or shortness of breath. [] Cardiovascular: Denies chest pain or hemoptysis GI: Denies nausea, vomiting bloody stools or diarrhea. [] : Denies dysuria or hematuria Musculoskeletal: Denies back pain or joint pain. [] Integument: Denies rash or diaphoresis Neurologic: Denies headache, focal weakness or sensory changes. [] Endocrine: Denies polyuria or polydipsia. [] Lymphatic: Denies swollen glands. [] Psychiatric: Denies depression or anxiety. [] Heart Score: C/O Chest Pain: No Risk Factors: Risk Factors: DM, Current or recent (<one month) smoker, HTN, HLP, family history of CAD, obesity. Risk Scores: Score 0 - 3: 2.5% MACE over next 6 weeks - Discharge Home Score 4 - 6: 20.3% MACE over next 6 weeks - Admit for Clinical Observation Score 7 - 10: 72.7% MACE over next 6 weeks - Early Invasive Strategies Current Medications: Current Medications Medications (Trade) Dose Ordered Sig/Peter Start Time Stop Time Status Last Admin Dose Admin Multi-Ingredient Mouthwash/Gargle (Gi Cocktail) 20 ml 1X ONCE 02/04/21 23:45 02/04/21 23:46 DC 02/04/21 23:40 20 ML Allergies: Allergies: Allergies Coded Allergies Type Severity Reaction Last Updated Verified morphine Allergy Intermediate ITCHING 12/27/20 Yes Physical Exam: PE: Constitutional: Well developed, well nourished, no acute distress, non-toxic appearance, obese HENT: Normocephalic, atraumatic, Eyes: EOMI, conjunctiva normal, no discharge. Neck: Normal range of motion, supple, Cardiovascular: S1/2 present, regular rhythm Lungs & Thorax: Speaking in full sentences, bilateral equal chest rise, no tachypnea or increased work of breathing Abdomen: soft, mild epigastric abdominal discomfort, no Bowman sign, no rigidity or guarding, Skin: Warm, dry, Extremities: No tenderness, no cyanosis, Neurologic: Alert and oriented X 3, normal motor function, normal sensory function, no focal deficits noted. [] Psychologic: Calm, normal mood Current Patient Data: Vital Signs: Vital Signs Date Time Temp Pulse Resp B/P (MAP) Pulse Ox O2 Delivery O2 Flow Rate FiO2 02/04/21 23:50 76 15 127/82 (97) 99 Room Air 02/04/21 23:07 98.1 98.1 EKG: EKG: [] Radiology/Procedures: Radiology/Procedures: [] Course & Med Decision Making: Course & Med Decision Making Pertinent Labs and Imaging studies reviewed. (See chart for details) Concern for chronic epigastric abdominal pain with an outpatient follow-up. Patient hemodynamically stable with mild hypertension but no signs of endorgan damage. Patient has had multiple imaging studies in the last 6 weeks, labs in the last month. Will discharge home with strict ED return precautions were given for syncope, neurologic deficits, chest pain, dyspnea or hemoptysis. Encouraged urgent outpatient follow-up with PMD and GI-will likely need EGD and colonoscopy. Life-threatening processes were considered but are low suspicion at this time, given history, physical exam and ED workup. Pt was educated on all prescription medications and adverse effects. All patient's questions were answered and pt was stable at time of discharge. Life/limb-threatening differential includes but is not limited to, Magan's angina, infection (periodontal or peritonsillar abscess, retropharyngeal abscess, Vincents angina, ANUG, pharyngeal/varnish inspector/buccal space infection), trauma or fracture, dental fracture/subluxation/avulsion, dental bleeding or hemorrhage/DIC, pulpitis, alveolar osteitis or neoplasm I spoken with the patient and her caregivers. I explained the patient's condition, diagnoses and treatment plan based on the information available to me at this time. I have answered the patient and her caregiver's questions and addressed any concerns. The patient and her caregivers have a good understanding of patient's diagnosis, condition and treatment plan as can be expected at this point. Vital signs have been stable. Patient's condition is stable and appropriate for discharge from the emergency department. Patient will pursue further outpatient evaluation with primary care physician or other designated or consulting physician as outlined in the discharge instructions. The patient and/or caregivers are agreeable to this plan of care and follow-up instructions have been explained in detail. The patient and/or caregivers have received these instructions in written form and have expressed an understanding of the discharge instructions. The patient and/or caregivers are aware that any significant change of condition or worsening of symptoms should prompt immediate return to this or the closest emergency department or call to 911. Ashkan Disclaimer: Ashkan Disclaimer: This electronic medical record was generated, in whole or in part, using a voice recognition dictation system. Departure Departure Impression: Primary Impression: Chronic abdominal pain Additional Impression: Epigastric pain Disposition: HOME / SELF CARE / HOMELESS Condition: STABLE Referrals: NO PCP (PCP) Follow-up with your primary care physician in 24 to 48 hours OR FOLLOW UP WITH FAMILY MEDICINE: [address], [address] [place] [address] Patient Instructions: Abdominal Pain, Diet for Gastroesophageal Reflux Disease, Adult Additional Instructions: FOLLOW UP WITH GASTROENTEROLOGY: FOR DEFINITIVE MANAGEMENT [facility] [address] [place] [address] EMERGENCY DEPARTMENT GENERAL DISCHARGE INSTRUCTIONS Thank you for coming to [facility] Emergency Department (ED) today and trusting us with you care. We trust that you had a positive experience in our Emergency Department. If you wish to speak to the department management, you may call the Director at [phone]. YOUR FOLLOW UP INSTRUCTIONS ARE FOLLOWS: 1. Do you have a private Doctor? If you do not have a private doctor, please ask for a resource list of physicians or clinics that may be able to assist you with follow up care. 2. The Emergency Physicain has interpreted your x-rays. The X-Ray specialist will also review them. If there is a change in the findings, you will be notified in 48 hours when at all possible. 3. A lab test or culture has been done, your results will be reviewed and you will be notified if you need a change in treatment. ADDITIONAL INSTRUCTIONS AND INFORMATION: 1. Your care today has been supervised by a physician who is specially trained in emergency care. Many problems require more than one evaluation for a complete diagnosis and treatment. We recommend that you schedule your follow up appointment as recommended to ensure complete treatment of you illness or injury. If you are unable to obtain follow up care and continue to have a problem, or if your condition worsens, we recommend that you return to the ED. 2. We are not able to safely determine your condition over the phone nor are we able to give sound medical advice over the phone. For these safety reasons, if you call for medical advice we will ask you to come to the ED for further evaluation. 3. If you have any questions regarding these discharge instructions please call the ED at [phone]. SAFETY INFORMATION: In the interest of safety, wellness, and injury prevention; we encourage you to wear your sealbelt, if you smoke; quite smoking, and we encourage family to use a protective helmet for bicycling and other sporting events that present an increased risk for head injury. IF YOUR SYMPTOMS WORSEN OR NEW SYMPTOMS DEVELOP, OR YOU HAVE CONCERNS ABOUT YOUR CONDITION; OR IF YOUR CONDITION WORSENS WHILE YOU ARE WAITING FOR YOUR FOLLOW UP APPOINTMENT; EITHER CONTACT YOUR PRIMARY CARE DOCTOR, THE PHYSICIAN WHOSE NAME AND NUMBER YOU WERE GIVEN, OR RETURN TO THE ED IMMEDIATELY. Scripts Famotidine (PEPCID) 20 Mg Tablet 20 MG PO BID for 10 Days, #20 TAB Prov: DEEPA CH DO 02/05/21 DEEPA CH DO Feb 05, 2021 00:34
== END 2021-02-05 00:50 | disposition home or self-care (01) ==
LOC: ER 22:02
DX: R10.13 Epigastric pain (principal); G89.29 Other chronic pain; R07.89 Other chest pain; G40.909 Epilepsy, unspecified, not intractable, without status epilepticus; F17.200 Nicotine dependence, unspecified, uncomplicated; Z88.5 Allergy status to narcotic agent
CPT/HCPCS: 93005; 99283

== ENCOUNTER 2021-03-06 20:45 | Emergency (ER) | payer SELFPAY ==
[~2021-03-06] VITALS: Ht 162.6 cm; Wt 109.1 kg
[~2021-03-06 20:45] MED LIST changes: +FAMO-63 PO
[2021-03-06 23:48] VITALS: BP 146/79
[2021-03-07] MEDS ORDERED: ACETAMINOPHEN 325 MG TABLET. PO ONE (00:15)
[2021-03-07] MEDS ORDERED: AZIT250T PO (00:19)
--- NOTE | 2021-03-07 00:20 | PHYS DOC ---
Past Medical History Past Medical History: Anxiety, Seizure Additional Past Medical Histor: iron deficiency Past Surgical History: Additional Past Surgical Histo: X4 Smoking Status: Current Every Day Smoker Alcohol Use: Occasionally Drug Use: None General Adult EDM: Chief Complaint: HEADACHE HPI: HPI: Patient is a 35 year old female with past medical history of GERD anxiety presents with a chief complaint of right-sided headache. Patient states headache is been on and off for the last 4 to 5 weeks. Patient's pain is located in the adventist. Patient also states she has associated right-sided frontal and sinus discomfort. Patient noticed that pain is worse when laying on her right side. Pain is improved with massage of her adventist. Patient has not used any [id number] medications. Patient states she is concerned that she may have a sinus infection or stroke or aneurysm. Review of Systems: Review of Systems: Constitutional: Denies fever or chills. [] Eyes: Denies change in visual acuity. [] HENT: Positive nasal congestion NO sore throat. [] Respiratory: Denies cough or shortness of breath. [] Cardiovascular: Denies chest pain or edema. [] GI: Denies abdominal pain, nausea, vomiting, bloody stools or diarrhea. [] : Denies dysuria. [] Musculoskeletal: Denies back pain or joint pain. [] Integument: Denies rash. [] Neurologic: Positive headache, NO focal weakness or sensory changes. [] Endocrine: Denies polyuria or polydipsia. [] Lymphatic: Denies swollen glands. [] Psychiatric: Denies depression or anxiety. [] Heart Score: C/O Chest Pain: N/A Risk Factors: Risk Factors: DM, Current or recent (<one month) smoker, HTN, HLP, family history of CAD, obesity. Risk Scores: Score 0 - 3: 2.5% MACE over next 6 weeks - Discharge Home Score 4 - 6: 20.3% MACE over next 6 weeks - Admit for Clinical Observation Score 7 - 10: 72.7% MACE over next 6 weeks - Early Invasive Strategies Current Medications: Current Medications Medications (Trade) Dose Ordered Sig/Peter Start Time Stop Time Status Last Admin Dose Admin Acetaminophen (Tylenol) 650 mg 1X ONCE 03/07/21 00:15 03/07/21 00:16 Allergies: Allergies: Allergies Coded Allergies Type Severity Reaction Last Updated Verified morphine Allergy Intermediate ITCHING 12/27/20 Yes Physical Exam: PE: Constitutional: Well developed, well nourished, no acute distress, non-toxic appearance. [] HENT: Normocephalic, atraumatic, bilateral external ears normal, oropharynx moist, no oral exudates, nose normal. [Right-sided frontal and maxillary sinus tenderness] Eyes: PERRLA, EOMI, conjunctiva normal, no discharge. [] Neck: Normal range of motion, no tenderness, supple, no stridor. [] Cardiovascular:Heart rate regular rhythm, no murmur [] Lungs & Thorax: Bilateral breath sounds clear to auscultation [] Abdomen: Bowel sounds normal, soft, no tenderness, no masses, no pulsatile masses. [] Skin: Warm, dry, no erythema, no rash. [] Back: No tenderness, no CVA tenderness. [] Extremities: No tenderness, no cyanosis, no clubbing, ROM intact, no edema. [] Neurologic: Alert and oriented X 3, normal motor function, normal sensory function, no focal deficits noted. [] Psychologic: Affect normal, judgement normal, mood normal. [] Current Patient Data: Vital Signs: Vital Signs Date Time Temp Pulse Resp B/P (MAP) Pulse Ox O2 Delivery O2 Flow Rate FiO2 03/06/21 23:48 98.5 73 18 146/79 (95) 98 Room Air 98.5 EKG: EKG: [] Radiology/Procedures: Radiology/Procedures: [] Course & Med Decision Making: Course & Med Decision Making Pertinent Labs and Imaging studies reviewed. (See chart for details) [] Patient was evaluated for chief complaint. Based on history of present illness and physical exam no emergent work-up lab or radiologic imaging ordered. Do not suspect a stroke or an aneurysm. Patient was treated with Tylenol. She was discharged home with Zithromax. [place] Disclaimer: [place] Disclaimer: This electronic medical record was generated, in whole or in part, using a voice recognition dictation system. Departure Departure Impression: Primary Impression: Headache Additional Impression: Sinusitis Disposition: HOME / SELF CARE / HOMELESS Condition: STABLE Referrals: NO PCP (PCP) Patient Instructions: Migraine Headache, Sinus Headache Scripts Azithromycin (ZITHROMAX) 250 Mg Tablet 1 PKG PO UD, #6 TAB Prov: CAMILA REILLY DO 03/07/21 CAMILA REILLY DO Mar 07, 2021 00:20
== END 2021-03-07 00:28 | disposition home or self-care (01) ==
LOC: ER 20:45
DX: J32.9 Chronic sinusitis, unspecified (principal); F17.200 Nicotine dependence, unspecified, uncomplicated; K21.9 Gastro-esophageal reflux disease without esophagitis; Z88.5 Allergy status to narcotic agent
CPT/HCPCS: 99283

== ENCOUNTER 2021-03-23 19:32 | Emergency (ER) | payer SELFPAY ==
[~2021-03-23] VITALS: Ht 162.6 cm; Wt 104.5 kg
[~2021-03-23 19:32] MED LIST changes: +AZIT250T PO
[2021-03-23 19:35] VITALS: BP 156/69
--- NOTE | 2021-03-23 20:04 | ED.ADGEN ---
Past Medical History Past Medical History: Anxiety, Seizure Additional Past Medical Histor: iron deficiency Past Surgical History: Additional Past Surgical Histo: X4 Smoking Status: Current Every Day Smoker Alcohol Use: Occasionally Drug Use: None General Adult EDM: Chief Complaint: CHEST PAIN-CARDIAC NATURE HPI: HPI: Patient is a 35 year old female coming in for 1 week of anterior chest pain and feel like there is "fluid in my lungs". Patient denies any cough or fevers. Is concerned she has pneumonia. Patient has not gotten her COVID-19 vaccinations. She is a current everyday smoker. No GI complaints. Review of Systems: Review of Systems: All other systems within normal limits except for as noted in the HPI Allergies: Allergies: Allergies Coded Allergies Type Severity Reaction Last Updated Verified morphine Allergy Intermediate ITCHING 12/27/20 Yes Physical Exam: PE: Constitutional: Well developed, well nourished, no acute distress, non-toxic appearance. [] HENT: Normocephalic, atraumatic, bilateral external ears normal, nose normal. [] Eyes: PERRLA, conjunctiva normal, no discharge. [] Neck: No rigidity, supple, no stridor. [] Cardiovascular: Regular rate and rhythm, brisk cap refill [] Lungs & Thorax: Non labored symmetric respirations, no tachypnea or respiratory distress. Lungs clear Abdomen: Soft, nondistended. Skin: Warm, dry, no erythema, no rash. [] Back: Unremarkable Extremities: No deformities, range of motion grossly intact, no lower extremity edema [] Neurologic: Alert and oriented X 3, no focal deficits noted. [] Psychologic: Affect normal, judgement normal, mood normal. [] Current Patient Data: Labs: Laboratory Tests Test 03/23/21 19:40 Urine Collection Type Unknown Urine Color Yellow Urine Clarity Clear Urine pH 6.0 (<5.0-8.0) Urine Specific [place] <=1.005 (1.000-1.030) Urine Protein Negative mg/dL (NEG-TRACE) Urine Glucose (UA) Negative mg/dL (NEG) Urine Ketones (Stick) Negative mg/dL (NEG) Urine Blood Negative (NEG) Urine Nitrite Negative (NEG) Urine Bilirubin Negative (NEG) Urine Urobilinogen Dipstick 0.2 mg/dL (0.2 mg/dL) Urine Leukocyte Esterase Negative (NEG) Urine RBC 0 /HPF (0-2) Urine WBC 0 /HPF (0-4) Urine Squamous Epithelial Cells Few /LPF Urine Bacteria 0 /HPF (0-FEW) Urine Test Negative (NEG) Vital Signs: Vital Signs Date Time Temp Pulse Resp B/P (MAP) Pulse Ox O2 Delivery O2 Flow Rate FiO2 03/23/21 19:35 98.6 74 18 156/69 (95) 98 Room Air 98.6 EKG: EKG: Sinus rhythm, heart rate 68 bpm, normal axis, no ST elevation depression, no ectopy, normal intervals. T waves unremarkable. No change from EKG dated 01-29-21 [] Heart Score: C/O Chest Pain: N/A Risk Factors: Risk Factors: DM, Current or recent (<one month) smoker, HTN, HLP, family history of CAD, obesity. Risk Scores: Score 0 - 3: 2.5% MACE over next 6 weeks - Discharge Home Score 4 - 6: 20.3% MACE over next 6 weeks - Admit for Clinical Observation Score 7 - 10: 72.7% MACE over next 6 weeks - Early Invasive Strategies Radiology/Procedures: Radiology/Procedures: [facility] [address] [place] [address] IMAGING REPORT Signed PATIENT: ISAC JUAREZ ACCOUNT: [id number] : 1985 LOCATION: ER AGE: 35 SEX: F EXAM STATUS: REG ER ORD. PHYSICIAN: ZOYA LEACH MD REASON: chest pain, pna PROCEDURE: CHEST PA & LATERAL Chest PA and lateral: Reason for examination: Chest pain. Pneumonia. Comparison is made to previous study dated 01/29/2021. The heart size is normal. Mediastinum is unremarkable. Lung mariano are clear. No acute bony abnormalities are seen. Impression: No acute cardiopulmonary disease. Electronically signed by: Parvin Herbert MD (03/23/2021 9:45 PM) [facility] DICTATED and SIGNED BY: PARVIN HERBERT MD DATE: 03/23/21 [id number] [] Course & Med Decision Making: Course & Med Decision Making Pertinent Labs and Imaging studies reviewed. (See chart for details) No risk factors and nonsuspicious history of chest pain. Patient refusing Covid swab at discharge with PUI instructions. [] [place] Disclaimer: [place] Disclaimer: This electronic medical record was generated, in whole or in part, using a voice recognition dictation system. Departure Departure Impression: Primary Impression: Chest pain Additional Impression: Person under investigation for COVID-19 Disposition: 01 HOME / SELF CARE / HOMELESS Condition: STABLE Referrals: NO PCP (PCP) Patient Instructions: Chest Pain (Nonspecific) Additional Instructions: You have been tested for or diagnosed with COVID-19. It is an infection caused by a new type of coronavirus. COVID-19 will cause cold-like or mild flu symptoms in most. It can cause more severe symptoms like problems breathing in some. There is no treatment for COVID-19. The body will clear the infection over time. Self-care will help to ease discomfort. Steps to Take: Self-Care Rest as needed. Healthy habits may help you feel better. Steps include: Choose healthy foods including fruits and vegetables. Drink water throughout the day. Get plenty of sleep each night. If you smoke, try to quit. It may ease breathing. Avoid alcohol. Keep Others Healthy The virus can spread to others. Droplets are released every time you sneeze or cough. The droplets can get into the mouth, nose, or eyes of people near you and lead to infection. To lower the chances of spreading COVID-19 to others: Stay at home until your doctor has said it is safe to leave. If you tested positive this will mean staying isolated until both of the following are true: At least 7 days have passed since the start of illness. You are free of fever for at least 72 hours without the use of medicine. During this time: - Avoid public areas, events, or transportation. Do not return to work or school until your doctor has said it is safe to do so. - Call ahead if you need to go to a medical center. Let them know you may have COVID-19. It will help them guide you where to go. They may also ask you to wear a facemask when you come to the office. - If you call for emergency medical services, let them know you may have COVID-19. While at home: - Try to avoid close contact with others. Stay about 6 feet away. - If possible, spend most of your time in a separate room from others. - Use a face mask if you will be in close contact with others such as sharing a room or vehicle. - Have someone wipe down common surfaces in the home. Use household social media marketing specialist every day on areas like doorknobs, counters, or sinks. - Cough or sneeze into a tissue. Throw the tissue away right after use. If a tissue is not available, cough or sneeze into your elbow. - Wash your hands often. Wash them after sneezing or coughing. Use soap and water and wash for at least 20 seconds. Alcohol based hand window cleaner can be used if soap and water is not available. - Do not prepare food for others. Avoid sharing personal items like forks, spoons, or toothbrushes. - Avoid close contact with pets while you are sick. There is no evidence of the virus passing to pets. This is a safety step until more is known about this virus. Isolation can be frustrating. Social interaction can help. Keep in touch with friends and family through phone and tech options. You can still interact with others in your home, just keep a safe distance of about 6 feet. Follow-up: Your doctors office will check in with you to see if there are any changes in your health. You may be asked to keep track of symptoms to share with them. They will also let you know when you are clear to be in public again. Problems to Look Out For: Contact your doctor if your recovery is not going as you expect. Get emergency care if you have problems such as: - Trouble breathing - Nonstop chest pain or pressure - Changes in awareness, confusion, or problems waking - Lips or face have bluish color - Worsening of symptoms If you think you have an emergency, call for emergency medical services right away. As taken from [facility] Health Problem Qualifiers ZOYA LEACH MD Mar 23, 2021 20:04
[2021-03-23 20:06] LABS: BILIRUBIN,URINE NEGATIVE (NEG); CLARITY,URINE CLEAR; COLOR,URINE YELLOW; NITRITE,URINE NEGATIVE (NEG); PROTEIN,URINE NEGATIVE (NEG-TRACE); UROBILINOGEN,URINE 0.2 mg/dL (0.2 mg/dL)
[2021-03-23 20:08] LABS: U PREG PATIENT NEGATIVE (NEG)
[2021-03-23 20:11] LABS: BACTERIA,URINE 0 /HPF (0-FEW); RBC,URINE 0 /HPF (0-2); WBC,URINE 0 /HPF (0-4)
--- NOTE | 2021-03-23 21:47 | RAD ---
Chest PA and lateral: Reason for examination: Chest pain. Pneumonia. Comparison is made to previous study dated 01/29/2021. The heart size is normal. Mediastinum is unremarkable. Lung mariano are clear. No acute bony abnormali ties are seen. Impression: No acute cardiopulmonary disease. Electronically signed by: Parvin Valdez MD (03/23/2021 9:45 PM) JULIANNE
--- NOTE | 2021-03-24 01:39 | EKG ---
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
== END 2021-03-23 22:40 | disposition home or self-care (01) ==
LOC: ER 19:32
DX: R07.89 Other chest pain (principal); F17.200 Nicotine dependence, unspecified, uncomplicated; Z88.5 Allergy status to narcotic agent
CPT/HCPCS: 71046; 81001; 81025; 93005; 99285-25